=== PATIENT | male | born 1980 | race Caucasian/White ===

== ENCOUNTER 2021-05-12 08:07 | Emergency (ER) | payer MEDICAID ==
[2021-05-12] MEDS ORDERED: TORAdol 30 mg Injection IM ONE (08:24)
[2021-05-12] MEDS ORDERED: DECADRON 10MG INJ. IM ONE (08:24)
[2021-05-12] MEDS ORDERED: TORAdol 30 mg Injection ONE (08:40)
[2021-05-12] MEDS ORDERED: DECADRON 10MG INJ. ONE (08:41)
[2021-05-12 09:39] VITALS: O2SAT 99
--- NOTE | 2021-05-12 09:55 | XRAY ---
Exam: CT of the lumbar spine without IV contrast from 05/12/2021. CTDI: 9.77 mGy Comparison: None. Indication: Injured back while lifting a tire on Sunday; fell this morning getting out of bed; no history of prior back surgeries. Technique: Non-IV contrast axial images were obtained through the lumbar spine. Reconstructed coronal and sagittal images were created and reviewed. Findings: I see no acute lumbar spine fracture, spondylolisthesis, spondylolysis, or focal bone destruction. There is slight loss of anterior vertebral body heights of L1, L2, and L3. Some associated mild anterior lateral vertebral endplate spurring is seen at L2-L3 and L3-L4. These findings appear to be chronic. I also note some small Schmorl's nodes within the superior and inferior vertebral endplates of L2 and L4, as well as the inferior vertebral endplates of L1 and L3. Lumbar interspaces heights are adequately preserved. Facet joints appear unremarkable. I see no evidence of significant lumbar stenosis or lateral neural foraminal stenosis. I believe there is some minimal circumferential bulging of the L1-L2, L2-L3, and L3-L4 discs. A definite focal herniated disc is not seen on these images obtained with a sharp bone filter. On coronal image #27, there is a nonobstructing 1.5 mm stone overlying the lower pole of the right kidney. This is also seen on axial image #42. The visualized sacroiliac joints appear unremarkable. Impression: 1. No acute lumbar spine fracture, spondylolisthesis, spondylolysis, or bone destruction is seen. 2. There appears to be slight circumferential bulging of the L1-L2, L2-3, and L3-L4 discs without definite focal disc herniation on the images supplied. No lumbar spinal stenosis or lateral neural foraminal stenosis is appreciated. 3. Other mild degenerative and chronic changes, as discussed above. 4. Incidental note of a tiny nonobstructing stone within the lower pole of the right kidney.
--- NOTE | 2021-05-12 10:03 | XRAY ---
Exam: CT of the thoracic spine without IV contrast from 05/12/2021. CTDI: 11.47 mGy Comparison: None. Indication: Injured back lifting a tire on Sunday; fell this morning getting out of bed; no history of prior back surgeries. Technique: Non-IV contrast axial images were obtained through the thoracic spine. Reconstructed coronal and sagittal images were created and reviewed. Findings: On the CT green coffee blender images, there are 12 rib-bearing thoracic vertebra and 5 [id number] lumbar-type vertebra. I note slight convexity of the upper thoracic spine toward the left centered at T3 which may be due to minimal levoscoliosis, paravertebral muscular spasm on the right, or a problem with patient positioning. I see no acute thoracic spine fracture, AP subluxation, or bone destruction. Some minimal Schmorl's nodes are seen within lower thoracic vertebral endplates at T7, T8, and T9. There is very slight loss of the anterior vertebral body height of T8 which I believe is old. The thoracic spinal canal appears of normal caliber. The thoracic neural foramen appear patent throughout. The facet joints appear unremarkable. Minor biapical pleural thickening/scarring is seen. The visualized lungs and mediastinum appear grossly unremarkable. Impression: 1. No acute thoracic spine fracture, AP subluxation, or bone destruction is seen. 2. Minimal convexity of the upper thoracic spine toward the left centered at T3. See above. 3. Very small Schmorl's nodes and chronic changes seen within the lower thoracic spine, as discussed above.
--- NOTE | 2021-05-12 10:08 | ERPHSYRPT ---
- History of Present Illness Time Seen by Provider: 05/12/21 08:15 Source: patient Exam Limitations: no limitations Patient Subjective Stated Complaint: lower and mid back pain Triage Nursing Assessment: pt to ED by EMS c/o lumbar pain r/t moving heavy objects at work Sunday. pt states he was lifting tires when injury occured. painhas worsened since that date and was 10/10 when trying to get up from bed this morning. becomes sharp with movement. pain has caused pt to miss work this week. rates 8/10 now. four tabs of 500 mg tylenol taken at 0600 with no relief. Physician History: Patient is a 41-year-old male presents to our ED via EMS with acute on chronic low back pain. 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 Approximately 4 to 5 days ago patient injured his back. Patient denies urinary symptomology. No urgency frequency no dysuria. No hematuria however patient states his back pain has gotten progressively worse. Patient took a dose of Tylenol this morning at 6 AM. Patient Tylenol has not helped. Patient currently rated 8 out of 10. Pain worse with movement palpation of his lumbar spine. Pain improved with rest. No fever. No recent back procedures. No change in bowel bladder function. No saddle anesthesia. Patient states is otherwise healthy. Patient denies medicine allergies. He voices no other complaints or concerns at this time. Patient missed work but states he does not require a work note. Timing/Duration: day(s) (5 days ago) Method of Injury: lifting Quality: sharp Back Pain Location: lumbar spine (No radiation of pain.) Severity of Pain-Max: severe Severity of Pain-Current: moderate Modifying Factors: Improves With: movement Associated Symptoms: muscle spasms, No fever, No urinary incontinence, No loss of bowel control, No constipation, No nausea, No vomiting, No light-headedness, No dizziness, No numbness in legs/feet, No sensory/motor loss, No tingling in legs/feet Previous symptoms: no prior history (Chronic low back pain however has never been this severe) Allergies/Adverse Reactions: No Known Drug Allergies Allergy (Unverified 05/12/21 08:09) Home Medications: No Reportable Medications [No Reported Medications] 05/12/21 [History] Hx Tetanus, Diphtheria Vaccination/Date Given: Yes Hx Influenza Vaccination/Date Given: No Hx Pneumococcal Vaccination/Date Given: No Immunizations Up to Date: No Travel Risk - International Travel Have you traveled outside of the country in past 3 weeks: No - Coronavirus Screening Are you exhibiting any of the following symptoms?: No Close contact with a COVID-19 positive Pt in past 14-21 Days: No - Vaccine Status Have you recieved a Covid-19 vaccination: No - Review of Systems Constitutional: No Symptoms, No Fever, No Chills Eyes: No Symptoms Ears, Nose, & Throat: No Symptoms Respiratory: No Symptoms, No Cough, No Dyspnea Cardiac: No Symptoms, No Chest Pain, No Edema, No Syncope Abdominal/Gastrointestinal: No Symptoms, No Abdominal Pain, No Nausea, No Vomiting, No Diarrhea Genitourinary Symptoms: No Symptoms, No Dysuria Musculoskeletal: No Symptoms, No Back Pain, No Neck Pain Skin: No Symptoms, No Rash Neurological: No Symptoms, No Dizziness, No Focal Weakness, No Sensory Changes Psychological: No Symptoms Endocrine: No Symptoms Hematologic/Lymphatic: No Symptoms Immunological/Allergic: No Symptoms All Other Systems: Reviewed and Negative - Past Medical History Pertinent Past Medical History: No - Past Surgical History Past Surgical History: Yes - Social History Smoking Status: Current every day smoker How long have you smoked: 20 years Exposure to second hand smoke: No Drug Use: marijuana Patient Lives Alone: No - Nursing Vital Signs Nursing Vital Signs: Initial Vital Signs Temperature 98 F 05/12/21 08:11 Pulse Rate 70 05/12/21 08:11 Respiratory Rate 18 05/12/21 08:11 Blood Pressure 137/89 05/12/21 08:11 O2 Sat by Pulse Oximetry 96 05/12/21 08:11 Pain Scale Pain Intensity [Back] 8 Pain Intensity 5 - Physical Exam General Appearance: no apparent distress, alert Eye Exam: PERRL/EOMI, eyes nml inspection Ears, Nose, Throat Exam: normal ENT inspection, TMs normal, pharynx normal Neck Exam: normal inspection, non-tender, supple, full range of motion, No meningismus, No midline tenderness Respiratory Exam: normal breath sounds, lungs clear, airway intact, No respiratory distress Cardiovascular Exam: regular rate/rhythm, normal heart sounds, normal peripheral pulses Gastrointestinal Exam: soft, normal bowel sounds, No tenderness, No mass Extremity Exam: normal inspection, normal range of motion, No calf tenderness, No pedal edema Peripheral Pulses: dorsalis-pedis (R): 2+, dorsalis-pedis (L): 2+ Neurologic Exam: alert, oriented x 3, cooperative, industrial electrician II-XII nml as tested, normal mood/affect, nml station & gait, sensation nml, No motor deficits Skin Exam: normal color, warm, dry, No rash Lymphatic Exam: No adenopathy SpO2 Interpretation: normal SpO2: 99 O2 Delivery: Room Air - Course Nursing assessment & vital signs reviewed: Yes - CT Exams Lumbar Spine CT Interpretation: Tele-radiologist Report (No acute lumbar spine fracture or spondylolisthesis spondylolysis or bone destruction. Slight circumferential bulging of the L1-L2, L2-L3 and L 3L4 discs without definite focal disc herniation. No lumbar spinal stenosis. Other mild degenerative and chronic changes. Right nephrolithiasis) Ordered Tests: Active Orders 24 hr Category Date Time Status LUMBAR SPINE W/O [CT] Stat Exams 05/12/21 08:25 Completed THORACIC SPINE W/O CONTRAST [CT] Stat Exams 05/12/21 08:54 Taken Medication Summary Discontinued Medications Generic Name Dose Route Start Last Admin Trade Name Freq PRN Reason Stop Dose Admin Dexamethasone Sodium Phosphate 10 mg 05/12/21 08:24 05/12/21 08:44 Dexamethasone Sod Phosphate 10 Mg/Ml IM 05/12/21 08:25 10 mg STAT ONE Administration Dexamethasone Sodium Phosphate Confirm 05/12/21 08:41 Dexamethasone Sod Phosphate 10 Mg/Ml Administered 05/12/21 08:42 Dose 10 mg .ROUTE .STK-MED ONE Ketorolac Tromethamine 60 mg 05/12/21 08:24 05/12/21 08:44 Ketorolac Tromethamine 30 Mg/Ml Inj IM 05/12/21 08:25 60 mg STAT ONE Administration Ketorolac Tromethamine Confirm 05/12/21 08:40 Ketorolac Tromethamine 30 Mg/Ml Inj Administered 05/12/21 08:41 Dose 60 mg .ROUTE .STK-MED ONE - Progress Progress: improved Progress Note: Patient reassessed. Pain significantly improved. CT scan of lumbosacral spine shows no acute pathology. Chronic finding observed. Will discharge at this time. Patient agrees to follow-up with our on-call doctor within 48 hours for evaluation. Work note provided. Patient voiced no other complaints or concerns at this time. Patient states is ready for discharge. Portions of this note were created with voice recognition technology. There may be grammatical, spelling, punctuation or sound alike errors 05/12/21 10:14 Counseled pt/family regarding: diagnosis, need for follow-up, rad results - Departure Departure Disposition: Home Clinical Impression: Acute exacerbation of chronic low back pain, Lumbosacral strain, Schmorl's nodes, Bulging lumbar disc, Nephrolithiasis right kidney Condition: Stable Critical Care Time: No Referrals: DOCTOR,NO FAMILY [Primary Care Provider] - Follow up/PCP as directed LAVELLE SANDOVAL MD [ACTIVE STAFF] - Follow up/PCP as directed Additional Instructions: Discharge/Care Plan Brian Clemente was seen on 05/12/21 in the Emergency Room. The patient was counseled regarding Diagnosis,Lab results, Imaging studies, need for follow up and when to return to the Emergency Room. Prescriptions given: Discharge Note I have spoken with the patient and/or caregivers. I have explained the patient's condition, diagnosis and treatment plan based on the information available to me at this time. I have answered the patient's and/or caregiver's questions and addressed any concerns. The patient and/or caregivers have as good understanding of the patient's diagnosis, condition and treatment plan as can be expected at this point. The vital signs have been stable. The patient's condition is stable and appropriate for discharge from the emergency department. The patient will pursue further outpatient evaluation with the primary care physician or other designated or consulting physician as outlined in the discharge instructions. The patient and/or caregivers are agreeable to this plan of care and follow-up instructions have been explained in detail. The patient and/or caregivers have received these instruction. The patient/and or caregivers are aware that any significant change in condition or worsening of symptoms should prompt an immediate return to this or the closest emergency department or call 911.
[2021-05-12 10:19] VITALS: BP 112/73; PULSE 66
== END 2021-05-12 10:40 | disposition home or self-care (01) ==
LOC: ED 08:07
DX: S39.012A Strain of muscle, fascia and tendon of lower back, initial encounter (principal); X50.0XXA Overexertion from strenuous movement or load, initial encounter; Y99.0 Civilian activity done for income or pay; G89.29 Other chronic pain; M51.44 Schmorl's nodes, thoracic region; M51.26 Other intervertebral disc displacement, lumbar region; N20.0 Calculus of kidney; Z72.0 Tobacco use
CPT/HCPCS: 72128; 72131; 96372; 99284; J1100; J1885

== ENCOUNTER 2021-10-27 23:20 | Emergency (ER) | payer MEDICAID | END 2021-10-28 00:26 | disposition home or self-care (01) | LOC: ED 23:20 | DX: Z53.9 Procedure and treatment not carried out, unspecified reason (principal) | CPT/HCPCS: 99281 ==

== ENCOUNTER → 2021-10-27 | Emergency (ER) | payer MEDICAID, OTHER | END | disposition home or self-care (01) | LOC: ED 23:17 | DX: Z53.9 Procedure and treatment not carried out, unspecified reason (principal) | CPT/HCPCS: 99281 ==

== ENCOUNTER 2022-02-05 09:53 | Emergency (ER) | payer BC, OTHER ==
[2022-02-05] MEDS ORDERED: Anucort-HC SUPPOSITORY PR ONE (10:16)
[2022-02-05 10:17] VITALS: BP 140/95; PULSE 68; O2SAT 98
--- NOTE | 2022-02-05 10:21 | ERPHSYRPT ---
- History of Present Illness Time Seen by Provider: 02/05/22 10:17 Source: patient Exam Limitations: no limitations Patient Subjective Stated Complaint: Rectal pain-hemmorioids Triage Nursing Assessment: Patient ambulated back to ED and transferred self to bed. Patient A+O X 3. Patient's skin pink, warm and dry. Patient's skin pink, warm and dry. Patient complains of rectal pain due to hemmoroids. Patient states he has had hemmoroids for one week. Physician History: Patient complains of rectal pain due to hemorrhoids. Patient states he has had hemorrhoids for one week. Timing/Duration: week(s) (one week) Severity: moderate Associated Symptoms: denies symptoms Allergies/Adverse Reactions: No Known Drug Allergies Allergy (Verified 02/05/22 10:08) Hx Tetanus, Diphtheria Vaccination/Date Given: Yes Hx Influenza Vaccination/Date Given: No Hx Pneumococcal Vaccination/Date Given: No Immunizations Up to Date: Yes Travel Risk - International Travel Have you traveled outside of the country in past 3 weeks: No - Coronavirus Screening Are you exhibiting any of the following symptoms?: No - Vaccine Status Have you recieved a Covid-19 vaccination: No - Review of Systems Constitutional: No Symptoms Eyes: No Symptoms Ears, Nose, & Throat: No Symptoms Respiratory: No Symptoms Cardiac: No Symptoms Abdominal/Gastrointestinal: Hematochezia Genitourinary Symptoms: No Symptoms Musculoskeletal: No Symptoms Skin: No Symptoms - Past Medical History Pertinent Past Medical History: No - Past Surgical History Past Surgical History: Yes - Social History Smoking Status: Current every day smoker How long have you smoked: 20 years Exposure to second hand smoke: No Drug Use: marijuana Patient Lives Alone: No - Nursing Vital Signs Nursing Vital Signs: Initial Vital Signs Temperature 98.2 F 02/05/22 10:09 Pulse Rate 68 02/05/22 10:09 Respiratory Rate 18 02/05/22 10:09 Blood Pressure 140/95 02/05/22 10:09 O2 Sat by Pulse Oximetry 98 02/05/22 10:09 Pain Scale Pain Intensity 2 - Physical Exam General Appearance: no apparent distress Eye Exam: PERRL/EOMI Ears, Nose, Throat Exam: normal ENT inspection Neck Exam: normal inspection Respiratory Exam: normal breath sounds Cardiovascular Exam: regular rate/rhythm Gastrointestinal/Abdomen Exam: soft, other (hemorrhoids) Male Genitalia Exam: normal genitalia Back Exam: normal inspection Extremity Exam: normal inspection Neurologic Exam: alert, oriented x 3, cooperative SpO2: 98 - Course Nursing assessment & vital signs reviewed: Yes Ordered Tests: Medication Summary Generic Name Dose Route Start Last Admin Trade Name Freq PRN Reason Stop Dose Admin Hydrocortisone Acetate 25 mg 02/05/22 10:16 Hydrocortisone Acetate 25 Mg Supp.Rect LA 03/07/22 10:15 UD PRN HEMORRHOIDS - Progress Progress: unchanged Counseled pt/family regarding: diagnosis, need for follow-up - Departure Departure Disposition: Home Clinical Impression: Rectal or anal pain Hemorrhoids Qualifiers: Hemorrhoid type: third degree Qualified Code(s): K64.2 - Third degree hemorrhoids Condition: Stable Critical Care Time: No Referrals: JAQUELIN JAY MD [Primary Care Provider] - Follow up/PCP as directed Instructions: Hemorrhoids (DC) Additional Instructions: Discharge/Care Plan TIANA PAUL was seen on 02/05/22 in the Emergency Room. The patient was counseled regarding Diagnosis,Lab results, Imaging studies, need for follow up and when to return to the Emergency Room. Prescriptions given: Discharge Note I have spoken with the patient and/or caregivers. I have explained the patient's condition, diagnosis and treatment plan based on the information available to me at this time. I have answered the patient's and/or caregiver's questions and addressed any concerns. The patient and/or caregivers have as good understanding of the patient's diagnosis, condition and treatment plan as can be expected at this point. The vital signs have been stable. The patient's condition is stable and appropriate for discharge from the emergency department. The patient will pursue further outpatient evaluation with the primary care physician or other designated or consulting physician as outlined in the discharge instructions. The patient and/or caregivers are agreeable to this plan of care and follow-up instructions have been explained in detail. The patient and/or caregivers have received these instruction. The patient/and or caregivers are aware that any significant change in condition or worsening of symptoms should prompt an immediate return to this or the closest emergency department or call 911. TIANA PAUL was seen on 02/05/22 n the Emergency Room. At that time you were treated for an emergent condition, during your visit Laboratory, Radiology and/or other procedures may have been ordered. It is very important that you follow-up with your Primary Care Physician JAQUELIN JAY within the next 24- 48 hours to review your Emergency Room visit and the final results of testing that was ordered. Some test results such as Urine Cultures, Blood Cultures, and other cultures if ordered will not be finalized for 24-48 hours. If you do not have a Primary Care Provider please call the medical records department at [phone] ext [phone] to obtain a copy of your results or you may sign into our patient portal to obtain these results by visiting us @ [email or web address] and completing the following steps: 1. Click on the Patient Portal link 2. Click the Patient Self Enrollment Link to complete the enrollment form and entering your 3. Once the enrollment form is completed you will receive an email with a temporary ID and password at the email address you provided. 4. Next choose a user name and password. Your user name must be at least 4 characters long and your password must be at least 4 characters long. 5. Choose a security question from the list and provide your answer to the question. If you already have signed into the Health Portal you may access your Health Care Information 09/10 by the following steps: 1. Login to our website @ [email or web address] 2. Enter your original user name and password. FAQS The [facility] Health Portal is an online tool that contains your Lab Results, Radiology Reports, Visit History, Discharge Instructions and Health Summary Lab and Radiology Results will not be available for 72 hours on the portal. The Portal is a secure site, passwords are encryted and URLs are re-written so they cannot be copied and pasted. You and authorized family members are the only ones who can access your Portal. Also there is a timeout feature that protects your information if you leave the Portal page open. If you have technical difficulty please use the Contact Us link on the page this will allow you to submit any questions you have regarding the Portal or you may contact the Medical Record Department at [phone]. Prescriptions: Hydrocortisone 25 mg Supp [Anucort-HC SUPPOSITORY] 25 mg RC BID #[id number] supp.rect
[2022-02-05] MEDS ORDERED: Anucort-HC SUPPOSITORY PR PRN ×2 (10:26→10:28)
== END 2022-02-05 10:43 | disposition home or self-care (01) ==
LOC: ED 09:53
DX: K64.2 Third degree hemorrhoids (principal); K62.89 Other specified diseases of anus and rectum; Z72.0 Tobacco use; Z28.310 Unvaccinated for COVID-19
CPT/HCPCS: 99281; A9270-GY